=== PATIENT | female | born 1995 | race Hispanic/Latino ===

== ENCOUNTER 2021-08-08 16:42 | Emergency (ER) | payer BC, OTHER ==
[2021-08-08 17:18] LABS: #Basophils 0.1 10x3/uL (0.0-0.2); #Eosinphils 0.5 10x3/uL (0.0-0.5); #Monocytes 0.9 10x3/uL (0.0-1.1); #Neutrophils 7.8 10x3/uL (1.5-8.4); %Basophils 0.6 % (0.0-2.0); %Eosinophils 4.2 % (0.0-6.0); %Lymphocytes 26.3 % (18.0-47.0); %Monocytes 7.2 % (0.0-10.0); %Neutrophils 60.9 % (40.0-75.0); Hemoglobin 14.4 g/dL (12.0-15.5); Mean Corpuscular HGB CONC 35.6 g/dL (32.0-36.0); Mean Corpuscular Volume 84.2 fl (81.6-98.3); Mean Platelet Volume 9.1 fl (7.4-10.4); Platelet Count 328 10x3/uL (150-450); RBC Distribution Width 12.5 % (11.5-14.5); White Blood Cell (WBC) Count 12.9 10x3/uL (3.5-10.5)
[2021-08-08 17:34] LABS: ALT (SGPT) 19 U/L (8-55); AST (SGOT) 19 U/L (5-34); Albumin 4.4 g/dL (3.5-5.0); Alkaline Phosphatase 90 U/L (40-110); Anion Gap 14 mmol/L (10-20); BUN (Urea Nitrogen) 15 mg/dL (7.0-18.7); Bilirubin, Total 0.4 mg/dL (0.2-1.2); Calc. Creatinine Clearance 0 mL/min (70-130); Calcium 9.2 mg/dL (7.8-10.44); Carbon Dioxide 23 mmol/L (22-29); Chloride 106 mmol/L (98-107); Globulin 3.3 g/dL (2.4-3.5); Glucose 98 mg/dL (70-105); Lipase 44 U/L (8-78); Potassium 3.9 mmol/L (3.5-5.1); Protein, Total 7.7 g/dL (6.0-8.3); Sodium 139 mmol/L (136-145)
[2021-08-08 17:53] LABS: Bilirubin Neg (Negative); Blood, Urine 150 (Negative); Clarity Clear (Clear); Glucose, Urine (Dipstick) Normal (Negative); Ketone, Urine Negative (Negative); Leukocyte Negative (Negative); Nitrite Negative (Negative); Protein, Urine (Dipstick) Negative (Neg-Trace); Specific Gravity, Urine 1.025 (1.002-1.036); Urobilinogen Normal mg/dL (Less than 2)
[2021-08-08 18:00] LABS: Bacteria/HPF None Seen HPF (None Seen); Squamous Epithelial 0-3 HPF (0-3); WBC/HPF 0-3 HPF (0-3)
== END 2021-08-08 19:21 | disposition home or self-care (01) ==
LOC: CSHERS 16:42
DX: O20.9 Hemorrhage in early pregnancy, unspecified (principal); Z3A.01 Less than 8 weeks gestation of pregnancy
CPT/HCPCS: 36415; 76856; 80053; 81003; 81015; 83690; 84702; 85025; 86900; 86901

== ENCOUNTER 2021-08-15 16:09 | Emergency (ER) | payer BC ==
[2021-08-15 17:18] LABS: Hemoglobin 13.2 g/dL (12.0-15.5); Mean Corpuscular HGB CONC 34.6 g/dL (32.0-36.0); Mean Corpuscular Hemoglobin 29.3 pg (27.0-33.0); Mean Corpuscular Volume 84.7 fl (81.6-98.3); Platelet Count 255 10x3/uL (150-450); RBC Distribution Width 12.3 % (11.5-14.5); Red Blood Cell (RBC) Count 4.51 10x6/uL (3.90-5.03); White Blood Cell (WBC) Count 7.2 10x3/uL (3.5-10.5)
[2021-08-15 18:01] LABS: Band 1 % (5-11); Eosinophils 5 % (0-10); Lymphocytes 30 % (21-51); Monocytes 14 % (0-10)
[2021-08-15 18:02] LABS: Neutrophil 50 % (42-75)
[2021-08-15 18:03] LABS: MDiff Complete? YES; Platelet Morphology Comment Appears Adequate; RBC Morphology Normal
== END 2021-08-15 19:56 | disposition home or self-care (01) ==
LOC: CSHERS 16:09
DX: O20.0 Threatened abortion (principal); Z3A.01 Less than 8 weeks gestation of pregnancy
CPT/HCPCS: 76856; 84702; 85025

== ENCOUNTER 2021-08-17 09:31 | Emergency (ER) | payer BC ==
[2021-08-17 10:43] LABS: #Eosinphils 0.5 10x3/uL (0.0-0.5); #Monocytes 0.7 10x3/uL (0.0-1.1); #Neutrophils 2.7 10x3/uL (1.5-8.4); %Basophils 0.7 % (0.0-2.0); %Lymphocytes 34.1 % (18.0-47.0); %Monocytes 11.8 % (0.0-10.0); %Neutrophils 45.1 % (40.0-75.0); Hemoglobin 13.9 g/dL (12.0-15.5); Mean Corpuscular HGB CONC 34.7 g/dL (32.0-36.0); Mean Corpuscular Hemoglobin 29.6 pg (27.0-33.0); Mean Corpuscular Volume 85.3 fl (81.6-98.3); Mean Platelet Volume 9.4 fl (7.4-10.4); Platelet Count 257 10x3/uL (150-450); RBC Distribution Width 12.3 % (11.5-14.5)
== END 2021-08-17 12:32 | disposition home or self-care (01) ==
LOC: CSHERS 09:31
DX: O20.0 Threatened abortion (principal); O99.511 Diseases of the respiratory system complicating pregnancy, first trimester; J45.909 Unspecified asthma, uncomplicated; Z3A.01 Less than 8 weeks gestation of pregnancy
CPT/HCPCS: 76856; 84702; 85025

== ENCOUNTER 2021-08-18 20:36 | Emergency (ER) | payer BC | END 2021-08-19 02:20 | disposition home or self-care (01) | LOC: CSHERS 20:36 | DX: O00.90 Unspecified ectopic pregnancy without intrauterine pregnancy (principal); Z3A.08 8 weeks gestation of pregnancy | CPT/HCPCS: 76856; 96372; J9250 ==

== ENCOUNTER 2022-04-21 13:29 | Outpatient (CLI) | payer OTHER | END 2022-04-21 13:30 | disposition home or self-care (01) | LOC: CSHULT 13:29 | PROVIDERS: ATTEND Nurse Practitioner Women's Health | DX: Z34.01 Encounter for supervision of normal first pregnancy, first trimester (principal); Z3A.13 13 weeks gestation of pregnancy | CPT/HCPCS: 76805 ==

== ENCOUNTER 2022-07-04 09:02 | Inpatient (IN) | payer OTHER ==
[2022-07-09 03:02] LABS: Hemoglobin 13.3 g/dL (12.0-15.5); Mean Corpuscular HGB CONC 33.9 g/dL (32.0-36.0); Mean Corpuscular Hemoglobin 29.4 pg (27.0-33.0); Mean Corpuscular Volume 86.7 fl (81.6-98.3); Mean Platelet Volume 10.1 fl (7.4-10.4); Platelet Count 290 10x3/uL (150-450); RBC Distribution Width 13.3 % (11.5-14.5); Red Blood Cell (RBC) Count 4.52 10x6/uL (3.90-5.03); White Blood Cell (WBC) Count 11.5 10x3/uL (3.5-10.5)
[2022-07-09] MEDS ORDERED: NS w/ Oxytocin 30 units 500 ML ONE (03:11)
[2022-07-09 03:25] LABS: Syphilis Antibody Nonreactive (Nonreactive); Syphilis Antibody Index 0.04 S/CO (<1.00 Non-Reactive)
[2022-07-09 03:26] LABS: HBSAg Index 0.24 S/CO (0-0.99); Hep B Surf Ag - L&D Non-Reactive S/CO (NonReactive)
[2022-07-09 03:39] VITALS: BMI 31.6
[2022-07-09] MEDS ORDERED: Misoprostol 100 MCG TAB ONE (06:28)
[2022-07-09] MEDS ORDERED: Lidocaine 1% (PF) 30 ML VIAL SC PRN ×2 (06:45→07:34)
[2022-07-09] MEDS ORDERED: Docusate 100 MG CAP PO PRN (07:34)
[2022-07-09] MEDS ORDERED: Carboprost 250 MCG/ML AMP IM PRN (07:34)
[2022-07-09] MEDS ORDERED: Tranexamic Acid 1,000 MG/10 ML VIAL IVP PRN (07:34)
[2022-07-09] MEDS ORDERED: hydrALAZINE 20 MG/ML VIAL SLOW IVP PRN ×2 (07:34→22:23)
[2022-07-09] MEDS ORDERED: Acetaminophen 500 MG TAB PO PRN (07:34)
[2022-07-09] MEDS ORDERED: Butorphanol Tartrate 1 MG/ML VIAL SLOW IVP PRN (07:34)
[2022-07-09] MEDS ORDERED: Ibuprofen 800 MG TAB PO PRN (07:34)
[2022-07-09] MEDS ORDERED: Promethazine HCl 25 MG/ML VIAL IM PRN ×4 (07:34→22:23)
[2022-07-09] MEDS ORDERED: Ondansetron PF 4 MG/2 ML Vial IVP PRN ×4 (07:34→22:23)
[2022-07-09] MEDS ORDERED: Misoprostol 200 MCG TAB PR PRN (07:34)
[2022-07-09] MEDS ORDERED: Methylergonovine 0.2 MG/ML VIAL IM PRN (07:34)
[2022-07-09] MEDS ORDERED: Diphenoxylate HCl/Atropine Tablet PO PRN (07:34)
[2022-07-09] MEDS ORDERED: NS w/ Oxytocin 30 units 500 ML IV SCH ×3 (07:45)
[2022-07-09] MEDS ORDERED: Penicillin G Potassium 5 MILL.UNITS in Sodium Chloride 0.9% 100 ML IVPB SCH (07:45)
[2022-07-09] MEDS ORDERED: Misoprostol 100 MCG TAB VAG SCH ×2 (07:45→09:30)
[2022-07-09] MEDS: Penicillin G 2.5 MILL.units 2.5 MILL.UNITS in Premix Bag 1 BAG IVPB SCH ×2 (12:10→16:43)
[2022-07-09] MEDS: Lactated Ringer's 1,000 ML IV SCH (16:49)
[2022-07-09] MEDS ORDERED: Fentanyl 2 mcg/Bup 0.1% Cadd 100 ML ONE (16:55)
[2022-07-09] MEDS ORDERED: Moisturizing Cream (Eucerin) 113 GM JAR TOP PRN ×2 (17:35→20:04)
[2022-07-09] MEDS ORDERED: ePHEDrine Sulfate 50 MG/10 ML VIAL SLOW IVP PRN (17:35)
[2022-07-09] MEDS ORDERED: Acetaminophen 325 MG TAB PO PRN (17:35)
[2022-07-09] MEDS ORDERED: Lactated Ringer's 500 ML IV PRN (17:35)
[2022-07-09] MEDS ORDERED: Naloxone HCl 0.4 mg/ml Vial IVP PRN ×4 (17:35→20:04)
[2022-07-09] MEDS ORDERED: diphenhydrAMINE 50 MG/ML VIAL IVP PRN ×2 (17:35→20:04)
[2022-07-09] MEDS ORDERED: Fentanyl 2 mcg/Bupivacaine 0.1% Cassette 100 ML EPIDURAL SCH (17:45)
[2022-07-09] MEDS ORDERED: Communication Order-Pharmacy FS SCH ×2 (17:45→20:15)
[2022-07-09] MEDS ORDERED: PHENYLEPHRINE-NS 100 MCG/ML 10 ML SYRINGE ONE (17:47)
[2022-07-09] MEDS ORDERED: CEFAZOLIN 2 GM VIAL ONE (19:26)
[2022-07-09] MEDS ORDERED: Azithromycin 500 MG VIAL ONE (19:26)
[2022-07-09] MEDS ORDERED: Oxytocin 10 UNITS/ML VIAL ONE (19:45)
[2022-07-09] MEDS ORDERED: Ondansetron PF 4 MG/2 ML Vial ONE (19:45)
[2022-07-09] MEDS ORDERED: Dexamethasone 4 mg/ml Vial ONE (19:45)
[2022-07-09] MEDS ORDERED: Morphine PF 10 MG/10 ML VIAL ONE (19:52)
[2022-07-09] MEDS ORDERED: Ketorolac Tromethamine 30 MG/ML VIAL IVP PRN (20:04)
[2022-07-09] MEDS ORDERED: Ondansetron HCl/PF 4 MG/2 ML Vial IVP PRN (20:04)
[2022-07-09] MEDS ORDERED: Naloxone HCl 0.4 mg/ml Vial IV PRN (20:04)
[2022-07-09] MEDS ORDERED: L&D-Morphine 4 MG/ML VIAL SLOW IVP PRN (20:04)
[2022-07-09] MEDS ORDERED: Fentanyl 100 MCG/2 ML VIAL SLOW IVP PRN (20:04)
[2022-07-09] MEDS ORDERED: Promethazine HCl 25 MG SUPP PR PRN (20:04)
[2022-07-09] MEDS ORDERED: Meperidine HCl/PF 25 MG/ML VIAL SLOW IVP PRN (20:04)
[2022-07-09 20:12] LABS: pH (Cord, venous) 7.222 (7.250-7.350)
[2022-07-09] MEDS ORDERED: Ketorolac Tromethamine 30 MG/ML VIAL IVP SCH (20:15)
[2022-07-09] MEDS ORDERED: Ketorolac Tromethamine 30 MG/ML VIAL ONE (20:17)
[2022-07-09] MEDS ORDERED: Bupivacaine HCl 0.5%/Epinephrine 1:200,000/PF 30 ml Vial ONE (20:21)
[2022-07-09] MEDS ORDERED: Bupivacaine/Epinephrine 0.25% 30 ML VIAL ONE (20:21)
[2022-07-09] MEDS ORDERED: ePHEDrine Sulfate 50 MG/10 ML VIAL ONE (20:21)
[2022-07-09] MEDS ORDERED: Boostrix 0.5 ML (Tdap) VIAL (>/=7 yrs of age) IM ONE (22:23)
[2022-07-09] MEDS ORDERED: Simethicone Chewable 80 MG TAB PO PRN (22:23)
[2022-07-09] MEDS ORDERED: diphenhydrAMINE 25 MG CAP PO PRN (22:23)
[2022-07-09] MEDS ORDERED: Lanolin Ointment 7 GM TUBE TOP PRN (22:23)
[2022-07-09] MEDS ORDERED: Bisacodyl 10 MG SUPP PR PRN (22:23)
[2022-07-09] MEDS ORDERED: Docusate 100 MG CAP PO SCH (22:45)
[2022-07-09] MEDS ORDERED: Ferrous Sulfate 325 MG TAB PO SCH (22:45)
[2022-07-10 03:45] LABS: Mean Corpuscular HGB CONC 33.5 g/dL (32.0-36.0); Mean Corpuscular Hemoglobin 29.3 pg (27.0-33.0); Mean Corpuscular Volume 87.5 fl (81.6-98.3); Platelet Count 237 10x3/uL (150-450); RBC Distribution Width 13.2 % (11.5-14.5); Red Blood Cell (RBC) Count 3.75 10x6/uL (3.90-5.03)
[2022-07-10] MEDS: Ketorolac Tromethamine 30 MG/ML VIAL IVP SCH ×3 (04:02→14:47)
[2022-07-10] MEDS: Lactated Ringer's 1,000 ML IV SCH (05:59)
[2022-07-10] MEDS: Penicillin G 2.5 MILL.units 2.5 MILL.UNITS in Premix Bag 1 BAG IVPB SCH (06:00)
[2022-07-10] MEDS: Ferrous Sulfate 325 MG TAB PO SCH ×2 (07:21→21:26)
[2022-07-10] MEDS ORDERED: HYDROcodone/Acetaminophen 5/325 mg Tablet PO PRN ×2 (08:15)
[2022-07-10] MEDS ORDERED: Meperidine HCl/PF 25 MG/ML VIAL IM PRN (08:15)
[2022-07-10] MEDS: Docusate 100 MG CAP PO SCH ×2 (08:21→21:23)
[2022-07-10] MEDS: Ibuprofen 800 MG TAB PO SCH (21:23)
[2022-07-11] MEDS: Ibuprofen 800 MG TAB PO SCH ×2 (06:12→14:07)
[2022-07-11] MEDS: Ferrous Sulfate 325 MG TAB PO SCH (08:45)
[2022-07-11] MEDS: Docusate 100 MG CAP PO SCH (08:45)
[2022-07-11 14:37] VITALS: BP 136/63; TEMP 98
== END 2022-07-11 17:30 | disposition home or self-care (01) | DRG 788 ==
LOC: CSHLD 07-09 01:26 → CSHPP 07-09 22:30
PROVIDERS: ADMIT Family Medicine; ATTEND Family Medicine
PROC: 10907ZC Drainage of Amniotic Fluid, Therapeutic from Products of Conception, Via Natural or Artificial Opening (ICD-10-PCS; 2022-07-08)
PROC: 3E033VJ Introduction of Other Hormone into Peripheral Vein, Percutaneous Approach (ICD-10-PCS; 2022-07-08)
PROC: 3E0DXGC Introduction of Other Therapeutic Substance into Mouth and Pharynx, External Approach (ICD-10-PCS; 2022-07-08)
PROC: 10H07YZ Insertion of Other Device into Products of Conception, Via Natural or Artificial Opening (ICD-10-PCS; 2022-07-08)
PROC: 10D00Z1 Extraction of Products of Conception, Low, Open Approach (ICD-10-PCS; principal; 2022-07-09)
DX: O76 Abnormality in fetal heart rate and rhythm complicating labor and delivery (principal); O69.81X0 Labor and delivery complicated by cord around neck, without compression, not applicable or unspecified; O61.0 Failed medical induction of labor; Z3A.40 40 weeks gestation of pregnancy; Z37.0 Single live birth; Z79.82 Long term (current) use of aspirin; Z79.899 Other long term (current) drug therapy
CPT/HCPCS: 36415; 51702; 82805; 85027; 86780; 86850; 86900; 86901; 87340; 88307; J1100; J1885; J2274; J2405; J2540; J2590; J3490; J7120

== ENCOUNTER 2024-03-10 12:16 | Outpatient (CLI) | payer OTHER | END 2024-03-10 12:17 | disposition home or self-care (01) | LOC: CSHLD/OP 12:16 | PROVIDERS: ATTEND Family Medicine | DX: Z01.812 Encounter for preprocedural laboratory examination (principal); O34.219 Maternal care for unspecified type scar from previous cesarean delivery | CPT/HCPCS: 85014; 85018; 85049; 86780; 86850; 86900; 86901; 87340 ==